=== PATIENT | male | born 1990 | race Caucasian/White ===

== ENCOUNTER 2017-04-01 18:28 | Emergency (ER) | payer OTHER ==
[~2017-04-01] VITALS: Ht 172.7 cm; Wt 113.4 kg
[2017-04-01 18:48] VITALS: BP 155/98
[2017-04-01] MEDS ORDERED: Bacitracin Oint UD TOPIC ONE (19:00)
[2017-04-01] MEDS ORDERED: TdaP Vaccine 0.5ml Syr IM ONE (19:00)
[2017-04-01] MEDS ORDERED: AUGMENTIN 500-1 EACH ORAL (19:15)
[2017-04-01] MEDS ORDERED: BACITRACIN15 GM TOPIC (19:15)
[2017-04-01 19:28] VITALS: BP 155/98
--- NOTE | 2017-04-01 22:22 | Emergency Room Report ---
History of Present Illness General Chief Complaint: Animal Bite Source: Patient (MUMTAZ GENAO) Present Illness HPI The patient is a 26-year-old male presenting for dog bite of the hands. The patient states that he was bit by an unknown stray dog 6 hours prior to arrival. He noticed pain and bleeding of the hands. Pain is described as a 5/ 10 dull ache and does not radiate. Pain worse with touching and movement. Last tetanus shot was 7 years prior. He denies any other symptoms including nausea, vomiting, fever, chills, numbness or tingling (MUMTAZ GENAO.Sosa) Allergies: Coded Allergies: No Known Allergies (Unverified , 04/01/17) Patient History Past Medical History: see triage record Pertinent Family History: none Reviewed Nursing Documentation: PMH: Agreed, PSxH: Agreed (MUMTAZ GENAO) Nursing Documentation-PMH Past Medical History: No Stated History (MUMTAZ GENAO) Review of Systems All Other Systems: negative except mentioned in HPI (MUMTAZ GENAO.Sosa) Physical Exam Vital Signs Date Time Temp Pulse Resp B/P Pulse Ox O2 Delivery O2 Flow Rate FiO2 04/01/17 18:34 97.5 75 20 158/101 99 Room Air Sp02 EP Interpretation: reviewed, normal General Appearance: no apparent distress, alert, GCS 15, non-toxic Head: normocephalic, atraumatic Eyes: bilateral eye PERRL, bilateral eye normal inspection ENT: hearing grossly normal, normal pharynx, no angioedema, normal voice Neck: full range of motion, supple/symm/no masses Respiratory: chest non-tender, lungs clear, normal breath sounds, speaking full sentences Musculoskeletal: normal range of motion, tender - TTP over distal fingers and L thenar prominence Neurologic: alert, oriented x3, responsive, motor strength/tone normal, sensory intact, normal gait, speech normal Skin: laceration - puncture to L thenar prominence. abrasions to distal ends of fingers Lymphatic: no adenopathy (MUMTAZ GENAO) Medical Decision Making PA Attestation Dr. Beckwith is my supervising physician. Patient management was discussed with my supervising physician (TERZIAN,MUMTAZ P.A.) Diagnostic Impression: Primary Impression: Dog bite of extremity ER Course The patient is a 26-year-old male presenting for dog bite of the hands Differential diagnoses considered but not limited to: Animal bite, laceration, abrasion, tendon injury, infection, among others Physical exam: Afebrile. No apparent distress There are multiple abrasions to the distal ends of the fingers. No bleeding. Does not extend through dermis. There is an approximately 1 cm puncture to the left thenar prominence. No active bleeding. There is full active range of motion of all fingers and thumb. Sensation intact. The wounda are copiously irrigated with pressured normal saline and Betadine. Bacitracin applied with sterile dressing The patient will be discharged home with a prescription for Augmentin. ER precautions given (MUMTAZ GENAO) ER Course I was consulted regarding rabies prophylaxis. There is no indication. (Silvestre Beckwith M.D.) Last Vital Signs Date Time Temp Pulse Resp B/P Pulse Ox O2 Delivery O2 Flow Rate FiO2 04/01/17 19:28 97.4 72 20 155/98 98 Room Air Status: improved (MUMTAZ GENAO.AJered) Disposition: HOME, SELF-CARE Condition: Improved Scripts Bacitracin (Bacitracin) 28.4 Gm Oint...g. 1 APPLIC TOPIC THREE TIMES A DAY, #28 GM Prov: MUMTAZ GENAO P.A. 04/01/17 Amoxicillin/Potassium Clav 500-125 Tablet* (AUGMENTIN 500-125 TABLET*) 1 Each Tablet 1 TAB ORAL THREE TIMES A DAY, #21 TAB Prov: MUMTAZ GENAO.A. 04/01/17 Referrals: NOT CHOSEN [facility]/,REFERRING (PCP) Patient Instructions: Animal Bite Additional Instructions: I discussed my findings with the patient. All questions and concerns have been answered. Treatment and medication compliance have been addressed. I advised the patient that they need to follow up with primary doctor in 3-5 days. Return to ER if symptoms worsen, new symptoms arise, or if needed for any reason. The patient will continue to keep the wound clean. Patient verbalized understanding of discharge instructions. MUMTAZ GENAO April 01, 2017 22:22 Silvestre Beckwith M.D. April 03, 2017 02:11
== END 2017-04-01 19:28 | disposition home or self-care (01) ==
LOC: EMR 19:08
DX: S60.419A Abrasion of unspecified finger, initial encounter (principal); W54.0XXA Bitten by dog, initial encounter; Y93.9 Activity, unspecified; Y99.9 Unspecified external cause status
CPT/HCPCS: 99284